=== PATIENT | male | born 1940 | race Caucasian/White ===

== ENCOUNTER 2022-01-03 15:54 | Outpatient (CLI) | payer BC, MEDICARE, OTHER | END 2022-01-03 15:55 | disposition home or self-care (01) | LOC: LABBT 15:54 | PROVIDERS: ATTEND Ophthalmology Retina Specialist | DX: Z20.822 Contact with and (suspected) exposure to COVID-19 (principal) | CPT/HCPCS: 87811 ==

== ENCOUNTER 2022-01-08 05:55 | Day surgery (SDC) | payer BC, MEDICARE, OTHER ==
[2022-01-04 12:26] VITALS: BMI 27.3
[~2022-01-08 05:55] MED LIST: EPINEPHrine 0.3 MG in Ophthalmic Irrigation Solution 500 ML IRR SCH
[2022-01-08] MEDS ORDERED: Phenylephrine 2.5% Ophth Soln 5 ML BOT ONE (06:07)
[2022-01-08] MEDS ORDERED: Cyclopentolate 1% Opth Drop 2 ML BOT ONE (06:07)
[2022-01-08] MEDS ORDERED: Midazolam HCl 2 mg/2 ml Vial ONE (06:38)
[2022-01-08] MEDS ORDERED: fentaNYL Citrate/PF 100 MCG/2 ML SYRINGE ONE (06:38)
[2022-01-08] MEDS ORDERED: PROPOFOL 20 ML ONE (06:38)
[2022-01-08] MEDS ORDERED: CEFAZOLIN 1 GM VIAL ONE (07:24)
[2022-01-08] MEDS ORDERED: Triamcinolone 40 MG/ML VIAL ONE (07:24)
[2022-01-08] MEDS ORDERED: Lidocaine 1% MPF 2 ML VIAL ONE (07:24)
[2022-01-08] MEDS ORDERED: Maxitrol 0.1% Opth Oint 3.5 GM TUBE ONE (07:24)
[2022-01-08] MEDS ORDERED: Bupivacaine 0.75% 10 ML VIAL ONE (07:24)
[2022-01-08] MEDS ORDERED: Indocyanine Green 25 MG/10 ML VIAL ONE (07:24)
[2022-01-08] MEDS ORDERED: Lidocaine 4% PF 5 ML AMP ONE (07:24)
== END 2022-01-08 08:30 | disposition home or self-care (01) ==
LOC: SDC 05:55
PROVIDERS: ATTEND Ophthalmology Retina Specialist
DX: H35.372 Puckering of macula, left eye (principal); Z79.02 Long term (current) use of antithrombotics/antiplatelets; Z79.82 Long term (current) use of aspirin; Z79.899 Other long term (current) drug therapy; Z88.5 Allergy status to narcotic agent; Z88.8 Allergy status to other drugs, medicaments and biological substances; Z98.49 Cataract extraction status, unspecified eye; Z96.1 Presence of intraocular lens
CPT/HCPCS: J0171; J0690; J2250; J2704; J3301; J3490